=== PATIENT | female | born 1980 ===

== ENCOUNTER 2018-12-09 10:37 | Outpatient (CLI) | payer SELFPAY | END 2018-12-09 10:38 | disposition home or self-care (01) | LOC: C.LAB 10:37 ==

== ENCOUNTER 2019-02-04 14:11 | Emergency (ER) | payer MEDICAID, OTHER, SELFPAY ==
[2019-02-04 15:07] LABS: SQUAMOUS EPITHIAL 2 /hpf (0-5); URINE BILIRUBIN NEGATIVE (NEGATIVE); URINE BLOOD NEGATIVE (NEGATIVE); URINE CLARITY Hazy (Clear); URINE COLOR Yellow (YELLOW); URINE GLUCOSE (UA) NORMAL (Normal); URINE LEUKOCYTE ESTERASE NEG Leu/uL (Negative); URINE PROTEIN NEGATIVE (NEGATIVE); URINE UROBILINOGEN NORMAL mg/dL (0.2-1.0)
--- NOTE | 2019-02-04 15:20 | C.PDOC ---
History Of Present Illness 38 y/o female, LMP 10/02/18 , comes in complaining of an on and off lower abdominal pain that is cramping in nature since yesterday. Patient denies any urinary symptoms, vaginal bleeding or discharge, nausea, vomiting, fever, or chills. Patient has an appointment on 02/08/19 with OBGYN at [facility]. She reports she was treated for a UTI at the beginning of her . Time Seen by Provider: 02/04/19 14:24 Chief Complaint (Nursing): Female Genitourinary History Per: Patient History/Exam Limitations: no limitations Onset/Duration Of Symptoms: Days Current Symptoms Are (Timing): Still Present Past Medical History Reviewed: Historical Data, Nursing Documentation, Vital Signs Vital Signs: Last Vital Signs Temp 97.3 F L 02/04/19 14:29 Pulse 116 H 02/04/19 14:29 Resp 20 02/04/19 14:29 BP 104/73 02/04/19 14:29 Pulse Ox 99 02/04/19 14:29 Family History: States: No Known Family Hx - Social History Hx Alcohol Use: No Hx Substance Use: No - Immunization History Hx Tetanus Toxoid Vaccination: No Hx Influenza Vaccination: No Hx Pneumococcal Vaccination: No Review Of Systems Constitutional: Negative for: Fever, Chills Cardiovascular: Negative for: Chest Pain Respiratory: Negative for: Shortness of Breath Gastrointestinal: Positive for: Abdominal Pain (lower). Negative for: Nausea, Vomiting Genitourinary: Negative for: Dysuria, Hematuria, Vaginal Discharge, Vaginal Bleeding Musculoskeletal: Negative for: Back Pain Skin: Negative for: Rash Physical Exam - Physical Exam Appears: Non-toxic, No Acute Distress Skin: Warm, Dry, No Rash Head: Atraumatic, Normacephalic Eye(s): bilateral: PERRL, EOMI Oral Mucosa: Moist Neck: Supple Chest: Symmetrical Cardiovascular: Rhythm Regular, No Murmur Respiratory: No Rales, No Rhonchi, No Wheezing, Other (CTA bilaterally) Gastrointestinal/Abdominal: Soft, Tenderness (suprapubic tenderness), No Distention, No Guarding, No Rebound Extremity: No Pedal Edema, No Swelling Extremity: Bilateral: Atraumatic, Normal ROM Neurological/Psych: Oriented x3, Normal Speech, Normal Cognition ED Course And Treatment - Laboratory Results Result Diagrams: 02/04/19 15:19 02/04/19 15:19 Lab Results: Urine Color Yellow (YELLOW) 02/04/19 14:52 Urine Clarity Hazy (Clear) 02/04/19 14:52 Urine pH 7.0 (5.0-8.0) 02/04/19 14:52 Ur Specific [place] 1.014 (1.003-1.030) 02/04/19 14:52 Urine Protein Negative mg/dL (NEGATIVE) 02/04/19 14:52 Urine Glucose (UA) Normal mg/dL (Normal) 02/04/19 14:52 Urine Ketones Negative mg/dL (NEGATIVE) 02/04/19 14:52 Urine Blood Negative (NEGATIVE) 02/04/19 14:52 Urine Nitrate Negative (NEGATIVE) 02/04/19 14:52 Urine Bilirubin Negative (NEGATIVE) 02/04/19 14:52 Urine Urobilinogen Normal mg/dL (0.2-1.0) 02/04/19 14:52 Ur Leukocyte Esterase Neg Bailey/uL (Negative) 02/04/19 14:52 Urine WBC (Auto) < 1 /hpf (0-5) 02/04/19 14:52 Urine RBC (Auto) 1 /hpf (0-3) 02/04/19 14:52 Ur Squamous Epith Cells 2 /hpf (0-5) 02/04/19 14:52 O2 Sat by Pulse Oximetry: 99 (RA) Pulse Ox Interpretation: Normal - CT Scan/US Obstetrics US Other Rad Studies (CT/US): Read By Radiologist, Radiology Report Reviewed CT/US Interpretation: IMPRESSION: Single intrauterine live with u ltrasound estimated gestational age of 18 weeks 0 day +/-1 week 2 days. Estimated date of delivery by ultrasound is 07/08/2019. Placenta seen at the posterior wall. Anterior left uterine fibroid measures 3.2 centimeter. Medical Decision Making Medical Decision Making: Plan: --Labs --UA --Obstetrics US 1810 results of obstetric us discussed with pt; pt made aware of lower than expected fhr, and told to f/u with ob princess, advised pelvic rest, advised about anterior fibroid, possible cause of pain. labs done here at [facility] in Nov 2018 urine culture has rods, <10,000 cfu, no sensitivity given. given those results. will treat for uti with macrobid. Disposition Counseled Patient/Family Regarding: Studies Performed, Diagnosis, Need For Followup, Rx Given - Disposition Disposition: HOME/ ROUTINE Disposition Time: 18:17 Condition: GOOD Additional Instructions: Eugenia un seguimiento con jordan obstetra mujica pronto jennifer sea posible y lleve consigo mark copia de jordan laboratorio y el informe de ultrasonido. Laura antibiticos segn lo prescrito hasta que est hecho Flori ms colette. Tylenol para el dolor si es necesario. Bentley plvico- nada en la vagina- sin sexo. Regrese a la carlos de emergencias para cualquier dolor peor o sangrado de la vagina. Follow up with your cloud architect as soon as possible and bring copy of your labs and ultrasound report with you. Take antibiotics as prescribed until done. Drink more water. Tylenol for pain if needed. Pelvic rest- nothing in vagina- no sex. Return to ER for any worse pain or vagina bleeding. Prescriptions: Nitrofurantoin Macrocrystals [Macrobid] 100 mg PO BID #14 cap Instructions: Urinary Tract Infection, Adult (DC) Forms: Gen Discharge Inst Divehi, Lumeta (Divehi) - Clinical Impression Clinical Impression: UTI (urinary tract infection), 18 weeks gestation of , Abdominal pain during intrauterine - PA / TEAM LEAD / Resident Statement MD/DO has reviewed & agrees with the documentation as recorded. - Scribe Statement The provider has reviewed the documentation as recorded by the Scribe Liseth Witt All medical record entries made by the Scribe were at my direction and personally dictated by me. I have reviewed the chart and agree that the record accurately reflects my personal performance of the history, physical exam, medical decision making, and the department course for this patient. I have also personally directed, reviewed, and agree with the discharge instructions and disposition.
[2019-02-04 15:24] LABS: BASO % 0.2 % (0.0-2.0); EOS % 0.2 % (0.0-4.0); HEMOGLOBIN 13.3 g/dL (11.0-16.0); LYMPH # 1.2 K/uL (1.0-4.3); LYMPH % 10.8 % (20.0-40.0); MEAN CELL VOLUME 87.2 fL (81.0-99.0); MEAN CORPUSCULAR HEMOGLOBIN 28.3 pg (27.0-31.0); MEAN CORPUSCULAR HGB CONC 32.4 g/dL (33.0-37.0); MEAN PLATELET VOLUME 11.3 fL (7.2-11.7); MONO # 0.5 K/uL (0.0-0.8); MONO % 4.8 % (0.0-10.0); NEUT # 9.2 K/uL (1.8-7.0); NRBC % 0.1 % (0.0-2.0); RBC 4.7 Mil/uL (3.80-5.20)
[2019-02-04 15:37] LABS: ALB/GLOB RATIO 1.2 (1.0-2.1); ALT/SGPT 10 U/L (9-52); AST/SGOT 18 U/L (14-36); BLOOD UREA NITROGEN 9 mg/dL (7-17); CALCIUM 9.1 mg/dl (8.6-10.4); GFR NON-AFRICAN AMERICAN > 60
--- NOTE | 2019-02-04 17:12 | US ---
Date of service: 02/04/2019 PROCEDURE: OB Pelvic Ultrasound HISTORY: preg with low ab pain LMP: COMPARISON: None available. FINDINGS: UTERUS: Gestational sac: Single intrauterine gestation. Heart rate: 124 bpm. age (Ultrasound estimated): 18 weeks +/-1 week 2 days Sarah-gestational hemorrhage: None. Date of delivery (Ultrasound estimated) : 07/08/2019 The placenta is seen at the posterior wall. Suspicious for fibroid in the anterior uterine wall measures 2.8 x 2.6 x 3.2 centimeter CERVIX: Measures 3.7 cm. Long and closed. No cervical abnormality seen. RIGHT OVARY: Measures 3 x 1.4 x 2.1 cm. No mass lesion. Normal flow. LEFT OVARY: Measures 2.9 x 2.2 x 2.6 cm. No solid mass. Normal flow. FREE FLUID: None. OTHER FINDINGS: None. IMPRESSION: Single intrauterine live with ultrasound estimated gestational age of 18 weeks 0 day +/-1 week 2 days. Estimated date of delivery by ultrasound is 07/08/2019. Placenta seen at the posterior wall. Anterior left uterine fibroid measures 3.2 centimeter.
[2019-02-04 18:27] VITALS: BP 117/73; PULSE 95; RESP 20; TEMP 98.3
[2019-02-06 22:45] VITALS: O2SAT 99
== END 2019-02-04 18:30 | disposition home or self-care (01) ==
LOC: C.ER 14:11
DX: O23.42 Unspecified infection of urinary tract in pregnancy, second trimester (principal); O26.892 Other specified pregnancy related conditions, second trimester; R10.30 Lower abdominal pain, unspecified; Z3A.18 18 weeks gestation of pregnancy